=== PATIENT | male | born 1965 | race Caucasian/White ===

== ENCOUNTER 2018-04-14 15:54 | Emergency (ER) | payer BC ==
[2018-04-14] MEDS ORDERED: Tetan/Diph/Pertus SYR(Tdap)* 0.5 ML SYR(BOOSTRIX) use SYR IM ONE (17:16)
--- NOTE | 2018-04-14 18:33 | ED ---
Laceration/Wound HPI - HPI Summary HPI Summary: 53-year-old male presents with right index finger laceration today. He cut it on some metal from a racket. He states his tetanus is greater than 7 years ago. No active bleeding. No foreign of the wound. Has full range of motion of his finger. No numbness or tingling. He is right-handed. He is still currently on antibiotics for infection on the ring finger of his right hand. - History of Current Complaint Stated Complaint: RT FINGER LAC Time Seen by Provider: 04/14/18 17:16 Pain Intensity: 0 - Allergy/Home Medications Allergies/Adverse Reactions: Allergies Allergy/AdvReac Type Severity Reaction Status Date / Time No Known Allergies Allergy Verified 04/14/18 16:08 PMH/Surg Hx/FS Hx/Imm Hx Endocrine/Hematology History: Denies: Hx Anticoagulant Therapy Cardiovascular History: Denies: Hx Myocardial Infarction Infectious Disease History: No Infectious Disease History: Denies: Traveled Outside the [place] in Last 30 Days - Family History Known Family History: Negative: Diabetes - Social History Alcohol Use: Daily Substance Use Type: Reports: None Smoking Status (MU): Former Smoker Review of Systems Negative: Fever Negative: Chest Pain Negative: Shortness Of Breath Positive: Other - lac left middle finger All Other Systems Reviewed And Are Negative: Yes Physical Exam Triage Information Reviewed: Yes Vital Signs On Initial Exam: Initial Vitals Temp Pulse Resp BP Pulse Ox 98.4 F 67 16 135/85 100 04/14/18 16:03 04/14/18 16:03 04/14/18 16:03 04/14/18 16:03 04/14/18 16:03 Vital Signs Reviewed: Yes Appearance: Positive: Well-Appearing Skin: Positive: Other - 1 and 1/2cm by 1/4cm laceration of middle phalanx Head/Face: Positive: Normal Head/Face Inspection Eyes: Positive: Normal, Conjunctiva Clear ENT: Positive: Pharynx normal Respiratory/Lung Sounds: Positive: Clear to Auscultation, Breath Sounds Present Cardiovascular: Positive: Normal, RRR Musculoskeletal: Positive: Strength/ROM Intact - left middle finger, Other - capillary refill<2 secs Neurological: Positive: Normal Psychiatric: Positive: Normal Procedures - Laceration/Wound Repair 1 Location: Other - right index finger Description: Linear Anesthesia: Digital, 1.0% Length, Depth and Shape: 1 and 1/2cm and 1/4cm Irrigated w/ Saline (ccs): 300 Closure: Single Layer Suture Type: Prolene Number of Sutures: 3 Sterile Dressing Applied?: Yes - telfa and finger splint Diagnostics - Vital Signs Vital Signs Temp Pulse Resp BP Pulse Ox 04/14/18 16:03 98.4 F 67 16 135/85 100 - Laboratory Lab Statement: Any lab studies that have been ordered have been reviewed, and results considered in the medical decision making process. Laceration Repair Course/Dx - Course Course Of Treatment: 53-year-old male presents with right index finger laceration today. He cut it on some metal from a racket. He states his tetanus is greater than 7 years ago. No active bleeding. No foreign of the wound. Has full range of motion of his finger. No numbness or tingling. He is right-handed. He is still currently on antibiotics for infection on the ring finger of his right hand. There is full range of motion finger. Neurovascular intact. Has a 1 and 1/2 cm by half centimeter laceration of middle phalanx on palmar aspect. It was cleaned and digital block performed and suturing with 3 sutures and by PA student Cosme. Patient placed in finger splint. Patient understands agrees the plan. - Differential Dx Differental Diagnoses: Abrasion, Avulsion, Laceration - Clinical Impression Provider Diagnoses: Laceration of right index finger Discharge - Sign-Out/Discharge Documenting (check all that apply): Patient Departure - Discharge Plan Condition: Good Disposition: HOME Patient Education Materials: Care For Your Stitches (ED) Referrals: No Primary Care Phys,NOPCP [Primary Care Provider] - Additional Instructions: Keep area in splint for next two days, change dressing once a day Keep area clean and dry for 24 hours Take Tylenol or ibuprofen for pain every 6 hours every 6 hours as need Return to ED or primary for suture removal in 8-10 days Return to ED if develop signs of infection such as fever, spreading redness, or pus formation - Billing Disposition and Condition Condition: GOOD Disposition: Home
[2018-04-14 18:53] VITALS: BP 129/81
== END 2018-04-14 18:52 | disposition home or self-care (01) ==
LOC: ED 15:54
DX: S61.210A Laceration without foreign body of right index finger without damage to nail, initial encounter (principal); S61.213A Laceration without foreign body of left middle finger without damage to nail, initial encounter; W45.8XXA Other foreign body or object entering through skin, initial encounter; Y92.9 Unspecified place or not applicable; Z87.891 Personal history of nicotine dependence
CPT/HCPCS: 12002; 90471; 90715; 99282